=== PATIENT | female | born 1945 | race Caucasian/White ===

== ENCOUNTER → 2020-10-24 | Outpatient (CLI) | payer MEDICARE, BC ==
[~2020-10-24] MED LIST: CITALOPRAM40 MG PO; IMMUNE GLOBULIN SUBCUTANEOUS; METFORMIN500 MG PO; NEXIUM40 MG PO; PROAIR HFA0.09 MG/AC INH; ROPINIROLE HYDRO2 M2 PO; SYMBICORT1 AER INH; THEOPHYLLINE200 MG PO; [UNRECOGNIZED DRUG - OTHER]
== END | disposition home or self-care (01) ==
LOC: COVID19 09:34
PROVIDERS: ATTEND Internal Medicine
DX: U07.1 COVID-19 (principal)

== ENCOUNTER 2024-04-23 09:33 | Emergency (ER) | payer MEDICARE, BC ==
[~2024-04-23] VITALS: Ht 160 cm; Wt 65.8 kg
[~2024-04-23 09:33] MED LIST changes: +'XANAX1 MG PO; +CHLORTHALIDONE25 MG PO; +CLEOCIN HCL150 MG PO; +ELIQUIS5 M1 PO; +MELATONIN10 M2 PO
[2024-04-23] MEDS ORDERED: Acetaminophen/Oxycodone 5 MG/325 MG TABLET PO ONE (10:00)
[2024-04-23] MEDS ORDERED: LIDOCAINE PAIN1 EACH TD (10:37)
[2024-04-23] MEDS ORDERED: PERCOCET 5-3251 EACH PO (10:37)
== END 2024-04-23 10:45 | disposition home or self-care (01) ==
LOC: ED 09:33
DX: S43.102A Unspecified dislocation of left acromioclavicular joint, initial encounter (principal); S09.8XXA Other specified injuries of head, initial encounter; I10 Essential (primary) hypertension; J45.909 Unspecified asthma, uncomplicated; I25.2 Old myocardial infarction; E11.9 Type 2 diabetes mellitus without complications; Z88.2 Allergy status to sulfonamides; Z88.6 Allergy status to analgesic agent; Z88.8 Allergy status to other drugs, medicaments and biological substances; Z98.890 Other specified postprocedural states; Z90.710 Acquired absence of both cervix and uterus; Z90.12 Acquired absence of left breast and nipple; Z87.891 Personal history of nicotine dependence; W19.XXXA Unspecified fall, initial encounter; Y93.89 Activity, other specified; Y92.89 Other specified places as the place of occurrence of the external cause; Y99.8 Other external cause status